=== PATIENT | female | born 1990 | race Caucasian/White ===

== ENCOUNTER 2018-08-13 23:05 | Emergency (ER) | payer OTHER ==
[~2018-08-13] VITALS: Ht 165.1 cm; Wt 87.5 kg
[~2018-08-13 23:05] MED LIST: AUGMENTIN 875-1 EACH PO; BENADRYL25 MG PO; CYCLOBENZAPRINE10 MG PO; IBUPROFEN400 MG PO; NAPROXEN500 MG PO; NORCO 5-325 TA1 EACH PO; PROMETHAZINE HC25 M1 PO; TERCONAZOLE20 GM VAGINAL; TYLENOL325 MG PO; VISTARIL25 MG PO
[2018-08-14] MEDS ORDERED: PROTONIX40 MG PO (00:37)
[2018-08-14] MEDS ORDERED: KEFLEX500 MG PO (00:37)
[2018-08-14] MEDS ORDERED: ZOFRAN ODT4 MG PO (00:37)
== END 2018-08-14 00:48 | disposition home or self-care (01) ==
LOC: ED 23:05
DX: N39.0 Urinary tract infection, site not specified (principal); R10.13 Epigastric pain; F17.200 Nicotine dependence, unspecified, uncomplicated
CPT/HCPCS: 80053; 81001; 83690; 84703; 85025; 96361; 96374; 99284; J2405; J7030

== ENCOUNTER 2020-02-23 21:27 | Inpatient (IN) | payer OTHER ==
[~2020-02-23] VITALS: Ht 165.1 cm; Wt 81.0 kg
[~2020-02-23 21:27] MED LIST changes: +KEFLEX500 MG PO; +PROTONIX40 MG PO; +ZOFRAN ODT4 MG PO
[2020-02-23] MEDS ORDERED: IRON325 M1 PO (23:22)
[2020-02-23] MEDS ORDERED: PRENATAL VITAM1 EACH PO (23:22)
--- NOTE | 2020-02-24 02:17 | PR ---
[facility] [address] [facility] [place], [place] [address] Signed Progress Notes IP Datetime Report Generated by CPN: 02/24/2020 02:17 PROGRESS NOTES: [id number] Impression: Normal progression of labor Plan: Anticipate Vaginal Delivery VITAL SIGNS: [id number] Vital Signs: Reviewed; Within Normal Limits EXAM: [id number] Dilatation: 9.5 Effacement: 100 Station: -2 Uterine Contractions: every 2-3 minutes MEMBRANES: [id number] Membrane Status: Ruptured Amniotic Fluid Color: Meconium, Light Comments: Getting very uncomfortable. Will try "Hands-Knees" position. Fetus A: [id number] FHR Baseline: 110 Variability: Moderate 6-25bpm Accelerations: 15X15 Presentation: Vertex Fetus B: [id number] Signing Physician: Roldan Jefferson MD Copies: ~ *Electronically Signed* 02/24/20216 ROLDAN JEFFERSON MD PATIENT NAME: DERICK SUNG PROGRESS NOTE DATE OF : 86 PHYSICIAN: ROLDAN JEFFERSON MD RPT #: [id number] REPORT IS CONFIDENTIAL AND NOT TO BE RELEASED WITHOUT AUTHORIZATION
--- NOTE | 2020-02-24 12:01 | PR ---
[facility] [address] [facility] [place], [place] [address] Signed PP Progress Notes Datetime Report Generated by CPN: 02/24/2020 12:01 SUBJECTIVE: [id number] Pain: Within normal limits Nausea/Vomiting: Denies Vital Signs: [id number] Vital Signs: Reviewed; Within Normal Limits EXAM: [id number] Abdomen/Uterus: Normal Lochia: Normal Extremities: Normal IMPRESSION/PLAN/PROCEDURES: [id number] Impression: Normal progression Plan: Continue present management Procedures: None Progress Notes: Doing well, without complaint Signing Physician: Roldan Jefferson MD Copies: ~ *Electronically Signed* 02/24/20 1201 ROLDAN JEFFERSON MD PATIENT NAME: DERICK SUNG PROGRESS NOTE DATE OF : 86 PHYSICIAN: ROLDAN JEFFERSON MD RPT #: [id number] REPORT IS CONFIDENTIAL AND NOT TO BE RELEASED WITHOUT AUTHORIZATION
--- NOTE | 2020-02-25 12:25 | PR ---
[facility] [address] [place] [address] Signed PP Progress Notes Datetime Report Generated by CPN: 02/25/2020 12:24 SUBJECTIVE: [id number] Pain: Within normal limits Nausea/Vomiting: Denies Vital Signs: [id number] Vital Signs: Reviewed; Within Normal Limits Notable Details: PP Hgb/Hct = 9.5/30.8 EXAM: [id number] Abdomen/Uterus: Normal Lochia: Normal Extremities: Normal IMPRESSION/PLAN/PROCEDURES: [id number] Impression: Normal progression Other Impression: PP Anemia Plan: Discharge Procedures: None Progress Notes: Doing well without complaint. Ready to go home. Signing Physician: Roldan Jefferson MD Copies: ~ *Electronically Signed* 02/25/20 1224 ROLDAN JEFFERSON MD PATIENT NAME: DERICK SUNG PROGRESS NOTE DATE OF : 86 PHYSICIAN: ROLDAN JEFFERSON MD RPT #: [id number] REPORT IS CONFIDENTIAL AND NOT TO BE RELEASED WITHOUT AUTHORIZATION
== END 2020-02-25 19:30 | disposition home or self-care (01) | DRG 807 ==
LOC: FBCO 21:27 → FBC 21:35
PROVIDERS: ADMIT General Practice
PROC: 10E0XZZ Delivery of Products of Conception, External Approach (ICD-10-PCS; principal; 2020-02-24)
PROC: 0KQM0ZZ Repair Perineum Muscle, Open Approach (ICD-10-PCS; 2020-02-24)
DX: O99.824 Streptococcus B carrier state complicating childbirth (principal); Z37.0 Single live birth; Z3A.40 40 weeks gestation of pregnancy; O99.02 Anemia complicating childbirth; D64.9 Anemia, unspecified; O77.0 Labor and delivery complicated by meconium in amniotic fluid; O69.81X0 Labor and delivery complicated by cord around neck, without compression, not applicable or unspecified; O99.354 Diseases of the nervous system complicating childbirth; G43.909 Migraine, unspecified, not intractable, without status migrainosus; O70.1 Second degree perineal laceration during delivery; O99.334 Smoking (tobacco) complicating childbirth; F17.210 Nicotine dependence, cigarettes, uncomplicated; O99.324 Drug use complicating childbirth; F12.90 Cannabis use, unspecified, uncomplicated
CPT/HCPCS: 36415; 85027; A9270; J2540; J2550; J2590; J3010; J7121

== ENCOUNTER 2021-02-10 18:15 | Emergency (ER) | payer OTHER ==
[~2021-02-10] VITALS: Ht 165.1 cm; Wt 81.2 kg
[~2021-02-10 18:15] MED LIST changes: +IRON325 M1 PO; +PRENATAL VITAM1 EACH PO
== END 2021-02-10 22:08 | disposition home or self-care (01) ==
LOC: ED 18:15
DX: S90.31XA Contusion of right foot, initial encounter (principal); W22.8XXA Striking against or struck by other objects, initial encounter; F17.200 Nicotine dependence, unspecified, uncomplicated
CPT/HCPCS: 73630; 99283-25

== ENCOUNTER 2022-05-07 11:07 | Emergency (ER) | payer OTHER ==
[~2022-05-07] VITALS: Ht 165.1 cm; Wt 81.2 kg
[2022-05-07] MEDS ORDERED: HYDROCODON-ACE1 EA10 PO (12:04)
[2022-05-07] MEDS ORDERED: PENICILLIN V P500 MG PO (12:04)
== END 2022-05-07 12:22 | disposition home or self-care (01) ==
LOC: ED 11:07
DX: K04.7 Periapical abscess without sinus (principal); F17.200 Nicotine dependence, unspecified, uncomplicated
CPT/HCPCS: 10160; 99283-25

== ENCOUNTER 2022-08-21 15:53 | Emergency (ER) | payer OTHER ==
[~2022-08-21] VITALS: Ht 165.1 cm; Wt 70.4 kg
[~2022-08-21 15:53] MED LIST changes: +HYDROCODON-ACE1 EA10 PO; +PENICILLIN V P500 MG PO
[2022-08-21] MEDS ORDERED: NAPROSYN500 MG PO (18:08)
[2022-08-21] MEDS ORDERED: HYDROCODON-ACE1 EA10 PO (18:08)
[2022-08-21] MEDS ORDERED: CYCLOBENZAPRINE10 MG PO (18:08)
== END 2022-08-21 18:48 | disposition home or self-care (01) ==
LOC: ED 15:53
DX: M43.6 Torticollis (principal); F17.200 Nicotine dependence, unspecified, uncomplicated
CPT/HCPCS: 96372; 99283; J1885